=== PATIENT | female | born 1950 | race Caucasian/White ===

== ENCOUNTER → 2018-05-06 | Outpatient (CLI) | payer OTHER ==
[~2018-05-06] MED LIST: BISOPROLOL-HCT1 EAC2 PO; BUSPAR10 MG PO; CATAPRES0.1 MG PO; CLOPIDOGREL75 MG PO; CRESTOR10 MG PO; DILAUDID2 MG PO; DULOXETINE HCL30 MG PO; FISH OIL 1,0001 EACH PO; GABAPENTIN100 MG PO; GARLIC1 EACH PO; HYDROCHLOROTH12.5 M1 PO; HYDROCHLOROTHIA25 MG PO; HYDROCODON-ACE1 EAC7 PO; LOSARTAN POTAS100 MG PO; LOTENSIN HCT1 TABLE1 PO; METFORMIN HCL1000 MG PO; MULTI VITA-BE0.25 MG PO; NEXIUM40 MG PO; NORCO 5/3251 TABLET PO; OMEPRAZOLE20 MG PO; SKELAXIN800 MG PO
== END | disposition home or self-care (01) ==
LOC: AMB 09:23 → OPR 09:23 → EDSTATUS 10:00 → OPR 10:00
PROVIDERS: Internal Medicine
PROC: 0FB03ZX Excision of Liver, Percutaneous Approach, Diagnostic (ICD-10-PCS; principal; 2018-05-06)
DX: C22.8 Malignant neoplasm of liver, primary, unspecified as to type (principal); I10 Essential (primary) hypertension; K21.9 Gastro-esophageal reflux disease without esophagitis; Z88.1 Allergy status to other antibiotic agents; Z88.0 Allergy status to penicillin; Z88.2 Allergy status to sulfonamides; Z88.8 Allergy status to other drugs, medicaments and biological substances; Z79.01 Long term (current) use of anticoagulants; Z79.82 Long term (current) use of aspirin
CPT/HCPCS: 77012; 82948; 88307; 88341 TC; 88342 TC; J3010